=== PATIENT | male | born 1985 | race Caucasian/White ===

== ENCOUNTER 2022-02-04 06:03 | Emergency (ER) | payer OTHER, MEDICAID ==
[~2022-02-04] VITALS: Ht 177.8 cm; Wt 100.0 kg
[2022-02-04 06:08] VITALS: BP 153/92
[2022-02-04] MEDS ORDERED: VISCOUS LIDOCAINE 2% 15 ML UDC PO STA (06:19)
[2022-02-04] MEDS ORDERED: DICYCLOMINE 10 MG/5 ML ORAL SYR PO STA (06:19)
[2022-02-04] MEDS ORDERED: MAGNESIUM/ALUMINUM HYDROXIDE/SIMETHICONE 30ML UDC PO STA (06:19)
[2022-02-04] MEDS ORDERED: DICYCLOMINE HCL 10MG CAPSULE PO NR (07:15)
[2022-02-04] MEDS ORDERED: OMEP40CA20 MT (07:37)
[2022-02-04] MEDS ORDERED: ONDANSETRON 4MG ODT PO ONE (08:00)
== END 2022-02-04 08:04 | disposition home or self-care (01) ==
LOC: ER 06:03
DX: R07.9 Chest pain, unspecified (principal); E11.9 Type 2 diabetes mellitus without complications; E78.00 Pure hypercholesterolemia, unspecified
CPT/HCPCS: 71045; 93005; 99284; Q0162